=== PATIENT | male | born 2000 | race Caucasian/White ===

== ENCOUNTER 2019-04-30 22:56 | Emergency (ER) | payer OTHER, SELFPAY ==
[2019-04-30 23:04] VITALS: BP 136/72; PULSE 90; RESP 16; TEMP 36.6; O2SAT 96
--- NOTE | 2019-04-30 23:08 | ED.GENADUL_ITS ---
Discharge Plan Disposition Patient Disposition: HOME Condition: Good Discharge Details Chief Complaint: Headache Clinical Impression: CMV mononucleosis Primary Care Provider: Dave Edwards ED Provider: Woody Garcia Home Meds and New Rx's Prescriptions: No Action acetaminophen [Tylenol] 325 mg Capsule RF: 0 Discharge Instructions Instructions: Mononucleosis (ED) Additional Instructions: At this time you have mono. This is a viral illness that can last for few weeks. We have given you a steroid to help with your tonsillar swelling. Is very important to take Tylenol and Motrin to help with the pain. You can take 1000 mg of Tylenol every 6 hours and 600 mg of ibuprofen every 6 hours. Drink plenty of fluids, 10 to 12 cups/day. Avoid any activity that could cause trauma to your left side which is where your spleen is. Avoid any significant kissing. It would be important to wear a mask to prevent spread. If you notice any worsening of your symptoms, or any new symptoms such as vomiting, diarrhea, fever, chills, shortness of breath, chest pain, numbness, weakness, or fainting , please return immediately to the emergency department for reevaluation. Please follow up with your primary care provider as soon as possible for reassessment and reevaluation. As always, it was a pleasure participating in your medical care today. Stand Alone Forms: School Release Referrals: Dave Edwards [Primary Care Provider] - Medical Decision Making This is a 18-year-old male with no significant past medical history except for mild reactive airway disease who presents today for evaluation of fever, chills, sore throat, mild difficulty swallowing a mild headache. Symptoms have been present for the last 4 days and gradually worsening, however headache is notably presented and worsened in the last 24 hours. He denies any severe neck pain, he denies any significant cough. No other sick contacts. He does not live in a dorm room at college. Exam demonstrates notable swelling and tonsillar exudate on his tonsils bilaterally. No splenomegaly. He also demonstrates no evidence of nuchal rigidity, or signs or symptoms clinically suggestive of significant meningitis. However because of his headache meningitis is certainly on the differential. With his lack of concerning phy sical exam findings I do think it is appropriate to hold off on lumbar puncture at this time. We did discuss risks and benefits of this and the patient agrees this is his family. We will treat with fluids and Toradol. Strep test is negative. We are waiting on influenza and mono. 11:53 PM Patient's influenza is negative. Duval is positive. She would correlate well with his enlarged tonsils, fatigue and headache without neck pain or neck stiffness. On reassessment the patient's headache is notably improved. He feels much better at this time. Signs and symptoms at this time remained to be clinically inconsistent with significant meningitis. We will continue to hydrate as we await the rest of his labs. 12:44 AM Remainder the patient's laboratory work-up is returned, minimal white count of 12, no significant bandemia. No significant left shift. Electrolytes remained stable. On reassessment the patient states that he has complete resolution of his headache, feels well and feels comfortable going home. Repeat exam demonstrates no evidence of clinical meningitis whatsoever. Signs and symptoms appear clinically consistent with mononucleosis. We have given Decadron for his mild tonsillar swelling. Recommend continued fluids, Tylenol Motrin as needed, school note for the next week and a half, and the importance of avoiding any physical activity that could cause trauma to the left flank. I have extensively reviewed the treatment plan and discharge instructions with the patient and their family. I have addressed all patient concerns at this time. The patient and family was made aware of what symptoms to monitor for that would warrant a return to the emergency department. Discussed the plan with the patient and family, they demonstrate verbal understanding and agreement with our assessment and plan at this time. HPI General Date/Time Provider Initiated Documentation: 04/30/19 22:58 . HPI Narrative: This is a 18-year-old male with no significant past medical history who presents today for evaluation of headache, sore throat, fever and chills. Patient states that symptoms have been present for the chills, sore throat for the last 4 days, however the headache has developed over the last day. He denies any significant neck pain or stiffness. He denies any nausea vomiting or diarrhea. He denies any chest pain shortness of breath. He does have mild pain with swallowing. He did not get his flu shot. He has no other complaints at this time. Symptoms are not made worse by bending his neck or moving his neck. He denies any photophobia. He denies any other sick contacts. He does not live in a dorm, he lives off campus at college. Related Data Home Medications Medication Instructions Recorded Confirmed acetaminophen [Tylenol] 04/30/19 Allergies Allergy/AdvReac Type Severity Reaction Status Date / Time amoxicillin Allergy Unverified 04/30/19 23:06 General Stated Complaint: Headache PEARL: 3 Review of Systems All systems reviewed & are unremarkable except as noted in HPI and below PFSH Social History Smoking/Tobacco Use Status: Never Do you feel safe at home: Yes Do you feel safe in your relationship?: Yes Exam Narrative Exam Narrative: 1.Const: Well-nourished, Well-developed, appearing stated age 2.Eyes: PERRL, no conjunctival injection, and symmetrical lids. 3.ENT: Atraumatic external nose and ears. Moist MM. Neck: Symmetric, trachea midline, No thyromegaly. Patient demonstrates good movement of cervical neck. There is no nuchal rigidity, no nuchal tenderness. Patient is able to flex the neck without any difficulty or significant pain. Negative Kernig's and Brudzinski sign. Notable swelling of the tonsils bilaterally with tonsillar exudates. No evidence of airway compromise though. No evidence of peritonsillar abscess. Minimal bilateral cervical lymphadenopathy. 4.CVS: +S1/S2, No murmurs or gallops. Peripheral pulses 2+ and equal in all extremities. Brisk capillary refill in all extremities. 5.RESP: Unlabored respiratory effort. Clear to auscultation bilaterally. No wheezes rales or rhonchi 6.GI: Soft, Nontender/Nondistended, No hepatosplenomegaly. No guarding or rebound. 7.MSK: Normocephalic/Atraumatic, Extremities w/o deformity or ttp No cyanosis or clubbing, Normal movement of all extremities 8.Skin: Warm, Dry. No rashes or lesions. 9.Neuro: journeyman electrician II-XII grossly intact. Sensation grossly intact, no focal neurologic deficits. 10.Psych: (AAO) x3. Appropriate mood and affect Course Vital Signs Vital signs: Vital Signs Temperature 36.6 C 04/30/19 23:04 Pulse 90 04/30/19 23:04 Respiratory Rate 16 04/30/19 23:04 Blood Pressure 136/72 04/30/19 23:04 Pulse Oximetry 96 04/30/19 23:04 Temperature 36.6 C 04/30/19 23:04 Temperature Source Temporal Artery Scan 04/30/19 23:04 Pulse 90 04/30/19 23:04 Respiratory Rate 16 04/30/19 23:04 Blood Pressure 136/72 04/30/19 23:04 Blood Pressure Position Supine 04/30/19 23:04 Pulse Oximetry 96 04/30/19 23:04 Oxygen Delivery Method Room Air 04/30/19 23:04 Oxygen Flow Rate 0 04/30/19 23:04 Pain Level 9 04/30/19 23:04 Comment 04/30/19 23:04
[2019-04-30 23:37] LABS: HGB 14.5 g/dL (13.5-17.5); Mean Corp. HGB Concentration 35.4 g/dL (32.0-36.0); Mean Corpuscular Hemoglobin 31.6 pg (27.0-33.0); Mean Corpuscular Volume 89.3 fL (80-95); Platelet Count 174 x1000/uL (130-400); RBC 4.59 m/cumm (4.50-6.00); RBC Distribution Width 13.3 % (11.8-14.1); White Blood Cell Count 12.25 k/cumm (4.4-10.8)
[2019-04-30] MEDS: Normal Saline 1,000 ML 1000 ML IV (23:38)
[2019-04-30] MEDS: Ketorolac 30 MG/ML VIAL IVP (23:38)
[2019-04-30 23:46] LABS: Mono Screening POSITIVE (Negative)
[2019-04-30 23:48] LABS: ALT 70 U/L (16-63); AST 37 U/L (15-37); Albumin 3.9 g/dL (3.4-5.0); Alkaline Phosphatase 131 U/L (46-116); Anion Gap 10.4 mmol/L (3-11); BUN 12 mg/dL (7-18); Bilirubin, Total 1.3 mg/dL (0.2-1.0); CO2 25.6 mmol/L (21.0-32.0); CREATININE 0.99 mg/dL (0.70-1.30); Calcium 8.5 mg/dL (8.5-10.1); Chloride 103 mmol/L (98-107); Glucose 100 mg/dL (70-100); Potassium 3.6 mmol/L (3.5-5.1); Sodium 139 mmol/L (136-145); Total Protein 7.4 g/dL (6.4-8.2)
[2019-04-30 23:55] LABS: Absolute Lymphocyte Count 4.29 k/cumm (1.2-3.4); Absolute Neutrophil Count 6.49 k/cumm (1.2-6.7); Atypical Lymphocytes % 11
[2019-04-30 23:56] LABS: Absolute Monocyte Count 1.47 k/cumm (0.11-0.7)
[2019-04-30 23:58] LABS: Diff Comment Manual Differential
[2019-04-30] MEDS: Dexamethasone 10 MG/ML VIAL IVP (23:59)
[2019-05-01] VITALS: BP 116/69; PULSE 88; RESP 16; TEMP 38.2; O2SAT 100
[2019-05-01] MEDS: Normal Saline 1,000 ML 1000 ML IV
[2019-05-01 00:48] VITALS: BP 125/67; PULSE 86; RESP 16; TEMP 36.9; O2SAT 99
--- NOTE | 2019-05-01 00:49 | NUR.NOTE ---
IV removed. discharge instructions reviewed with verbal understanding. aware to f/u with pcp as needed. Ambulated to exit with steady gait.
--- NOTE | 2019-05-06 11:56 | W.ED.FU ---
Call patient on cell phone on 05/02 but there was no answer unable to leave message. Spoke to patient on 05/06 notifying him of his positive strep group C result on throat culture. Patient was also diagnosed with mono on his visit last week. He states his symptoms are improving. Discussed that we generally do not treat for group C strep, especially in the setting of improving symptoms. He is advised to follow-up with his primary care doctor for reevaluation within the next week and to return here at any time if worse.
== END 2019-05-01 00:50 | disposition home or self-care (01) ==
LOC: ER 05-01 00:59
PROVIDERS: Emergency Provider Student in an Organized Health Care Education/Training Program; PCP Family Medicine
DX: B27.10 Cytomegaloviral mononucleosis without complications (principal); J45.909 Unspecified asthma, uncomplicated
CPT/HCPCS: 36415; 80053; 87449; 96361; 96374; 96375; 99284; 85025; 86308; 87081; J1100; J1885